=== PATIENT | male | born 1995 | race Caucasian/White ===

== ENCOUNTER 2022-10-23 20:40 | Inpatient (IN) | payer OTHER ==
[2022-10-23] MEDS ORDERED: ONDANSETRON 4 MG/2 ML VIAL IVPB ONE (21:29)
[2022-10-23] MEDS ORDERED: SODIUM CHLORIDE 1,000 ML IV ONE (21:29)
[2022-10-23] MEDS ORDERED: morphine CARPU-JECT 2 MG/1 ML DISP.SYRIN IVPUSH ONE ×2 (21:29→23:06)
[2022-10-23] MEDS ORDERED: morphine SULFATE 4 MG/ML VIAL ONE (21:32)
[2022-10-23] MEDS ORDERED: ONDANSETRON 4 MG/2 ML VIAL ONE (21:33)
[2022-10-23 21:50] LABS: HEMATOCRIT 34.8 % (35.4-49); HEMOGLOBIN 11.9 G/dL (11.7-16.9); MCH 29.2 pg (25.7-33.7); MCHC 34.2 g/dl (32.0-35.9); MEAN CELL VOLUME 85.5 fl (80-96); MEAN PLT VOLUME 9.9 fl (7.5-11.1); RBC 4.07 10^6/uL (4.00-5.60); RDW 15.2 % (11.9-15.9)
[2022-10-23 21:50] LABS: ALBUMIN 4.5 g/dl (3.4-5.0); ALK PHOS 86 U/L (45-117); ANION GAP 12 MMOL/L (8-16); CHLORIDE 90 mmol/L (98-107); CO2 17 mmol/L (21-32); TOT PROT 3.4 g/dl (6.4-8.2)
[2022-10-23 21:51] LABS: WHITE BLOOD COUNT 9.1 10^3/uL (4.0-10.8)
[2022-10-23 21:52] LABS: PLATELET COUNT 172.5 10^3/uL (134-434)
[2022-10-23 21:55] LABS: GLUCOSE,RANDOM 312 mg/dl (74-106)
[2022-10-23 22:24] LABS: SODIUM 119 mmol/L (136-145)
[2022-10-23] MEDS ORDERED: INSULIN REGULAR HUMAN 100 UNITS/ML *VIAL IVPUSH ONE (23:12)
[2022-10-23] MEDS ORDERED: INSULIN REGULAR HUMAN 100 UNITS/ML *VIAL ONE (23:17)
[2022-10-24 00:39] LABS: LIPASE 3287 U/L (73-393)
[2022-10-24] MEDS ORDERED: HYDROmorphone HCL CARPU-JECT 1 MG/1 ML DISP.SYRIN IVPUSH ONE ×2 (00:42→03:10)
[2022-10-24] MEDS ORDERED: HYDROmorphone HCL/PF 1 MG/ML VIAL ONE ×2 (00:43→02:48)
[2022-10-24] MEDS: SODIUM CHLORIDE 1,000 ML IV SCH ×2 (01:19→11:32)
[2022-10-24] MEDS ORDERED: HYDROmorphone HCl 2 MG/ML VIAL IVPUSH STA (05:44)
[2022-10-24] MEDS ORDERED: SENNOSIDES 8.6MG TABLET (FP) PO PRN (05:46)
[2022-10-24] MEDS ORDERED: HYDROmorphone HCl 2 MG/ML VIAL ONE ×2 (05:53→12:59)
[2022-10-24] MEDS ORDERED: SODIUM CHLORIDE 0.9%/KCL 20 MEQ/1,000 ML INFUS.BAG IV SCH (06:00)
[2022-10-24] MEDS: ACETAMINOPHEN 1000 MG/100 ML BAG IVPB SCH ×4 (06:03→22:54)
[2022-10-24] MEDS: DOCUSATE SODIUM 100 MG CAPSULE (FP) PO SCH ×3 (06:04→21:58)
[2022-10-24 08:20] LABS: CHLORIDE 92 mmol/L (98-107); SODIUM 129 mmol/L (136-145)
[2022-10-24 08:22] LABS: ANION GAP 19 MMOL/L (8-16); CO2 18 mmol/L (21-32); MAGNESIUM 1.8 mg/dL (1.8-2.4)
[2022-10-24 08:26] LABS: CREATININE 1.8 mg/dL (0.55-1.3)
[2022-10-24 08:27] LABS: PHOSPHOROUS 5.2 mg/dL (2.5-4.9)
[2022-10-24 09:10] LABS: ALBUMIN 2.9 g/dl (3.4-5.0); ALK PHOS 125 U/L (45-117); BILIRUBIN,DIRECT 1.7 mg/dL (0.0-0.2); BILIRUBIN,TOTAL 3.8 mg/dL (0.2-1); GLUCOSE,RANDOM 474 mg/dL (74-106); LDH 279 U/L (87-246); LIPASE 6159 U/L (73-393); TOT PROT 9.8 g/dl (6.4-8.2); TRIGLYCERIDES > 4000 mg/dL (0-150)
[2022-10-24] MEDS ORDERED: DEXTROSE 5%-LACTATED RINGERS 1,000 ML IV SCH ×4 (09:30→16:02)
[2022-10-24] MEDS ORDERED: INSULIN REGULAR HUMAN 100 UNITS/ML *VIAL* (FOR IVP) IVPUSH ONE (09:31)
[2022-10-24] MEDS: HYDROmorphone HCl 2 MG/ML VIAL IVPUSH PRN ×4 (09:36→21:56)
[2022-10-24] MEDS ORDERED: INSULIN REGULAR 100 UNITS in SODIUM CHLORIDE 99 ML IVPB SCH ×6 (09:45→16:37)
[2022-10-24] MEDS: PANTOPRAZOLE SODIUM 40 MG VIAL IVPUSH SCH (09:56)
[2022-10-24 10:01] LABS: HEMATOCRIT 44.8 % (35.4-49); HEMOGLOBIN 14.7 GM/dL (11.7-16.9); MCH 28.9 pg (25.7-33.7); MCHC 32.6 g/dl (32.0-35.9); PLATELET COUNT 220 10^3/uL (134-434); RDW 15.3 % (11.9-15.9); WHITE BLOOD COUNT 12.5 K/mm3 (4.0-10.0)
[2022-10-24 10:25] LABS: ANISOCYTOSIS 1+; MACROCYTOSIS 0
[2022-10-24] MEDS ORDERED: INSULIN REGULAR HUMAN 100 UNITS/ML *VIAL IVPUSH ONE ×2 (12:45→15:19)
[2022-10-24] MEDS ORDERED: HYDROmorphone HCl 2 MG/ML VIAL IVPUSH ONE (12:58)
[2022-10-24] MEDS: ONDANSETRON 4 MG/2 ML VIAL IVPUSH PRN ×2 (13:01→22:05)
[2022-10-24] MEDS: HEPARIN NA (PORCINE) 5,000 UNITS/ML 1ML VIAL SQ SCH ×2 (13:05→21:57)
[2022-10-24 15:47] LABS: CHLORIDE 101 mmol/L (98-107); SODIUM 133 mmol/L (136-145)
[2022-10-24 15:48] LABS: ANION GAP 20 MMOL/L (8-16); CO2 12 mmol/L (21-32)
[2022-10-24 15:51] LABS: CREATININE 2.1 mg/dL (0.55-1.3)
[2022-10-24 15:59] LABS: TRIGLYCERIDES > 4000 mg/dL (0-150)
[2022-10-24 16:01] LABS: GLUCOSE,RANDOM 467 mg/dL (74-106)
[2022-10-24] MEDS ORDERED: POTASSIUM CHLORIDE 40 MEQ in DEXTROSE 5%-LACTATED RINGERS 1,000 ML IV SCH (16:38)
[2022-10-24] MEDS: INSULIN REGULAR 100 UNITS in SODIUM CHLORIDE 99 ML IVPB SCH (19:00)
[2022-10-24 20:11] LABS: CHLORIDE 113 mmol/L (98-107); SODIUM 139 mmol/L (136-145)
[2022-10-24 20:12] LABS: ANION GAP 9 MMOL/L (8-16); CO2 17 mmol/L (21-32); GLUCOSE,RANDOM 271 mg/dL (74-106)
[2022-10-24 20:16] LABS: CREATININE 2.1 mg/dL (0.55-1.3)
[2022-10-24 20:28] LABS: BLOOD UREA NITROGEN 8.9 mg/dL (7-18); TRIGLYCERIDES > 4000 mg/dL (0-150)
[2022-10-24] MEDS ORDERED: LACTATED RINGERS SOLUTION 1,000 ML/1,000 ML INFUS.BAG IV SCH (22:15)
[2022-10-25 01:16] LABS: CHLORIDE 114 mmol/L (98-107); SODIUM 140 mmol/L (136-145)
[2022-10-25 01:19] LABS: ANION GAP 9 MMOL/L (8-16); CO2 17 mmol/L (21-32); GLUCOSE,RANDOM 243 mg/dL (74-106)
[2022-10-25 01:22] LABS: CREATININE 2.5 mg/dL (0.55-1.3)
[2022-10-25 02:15] LABS: BLOOD UREA NITROGEN 10.7 mg/dL (7-18); CALCIUM 6.1 mg/dL (8.5-10.1); TRIGLYCERIDES 2800 mg/dL (0-150)
[2022-10-25] MEDS: ACETAMINOPHEN 1000 MG/100 ML BAG IVPB SCH (04:53)
[2022-10-25] MEDS: HYDROmorphone HCl 2 MG/ML VIAL IVPUSH PRN ×5 (04:54→21:49)
[2022-10-25] MEDS: HEPARIN NA (PORCINE) 5,000 UNITS/ML 1ML VIAL SQ SCH ×3 (05:01→21:48)
[2022-10-25] MEDS: DOCUSATE SODIUM 100 MG CAPSULE (FP) PO SCH ×4 (05:01→22:01)
[2022-10-25] MEDS ORDERED: INSULIN REGULAR HUMAN 100 UNITS/ML *VIAL IVPUSH ONE (06:59)
[2022-10-25 07:26] LABS: HEMATOCRIT 44.7 % (35.4-49); HEMOGLOBIN 15.7 GM/dL (11.7-16.9); MCH 30.1 pg (25.7-33.7); MCHC 35.2 g/dl (32.0-35.9); MEAN CELL VOLUME 85.4 fl (80-96); MEAN PLT VOLUME 10.1 fl (7.5-11.1); PLATELET COUNT 197 10^3/uL (134-434); RBC 5.23 M/mm3 (4.00-5.60); RDW 16.2 % (11.9-15.9); WHITE BLOOD COUNT 11.5 K/mm3 (4.0-10.0)
[2022-10-25 07:50] LABS: MAGNESIUM 1.6 mg/dL (1.8-2.4)
[2022-10-25 07:53] LABS: PHOSPHOROUS 1.2 mg/dL (2.5-4.9)
[2022-10-25 07:55] LABS: BILIRUBIN,DIRECT 0.4 mg/dL (0.0-0.2)
[2022-10-25 07:56] LABS: CHOLESTEROL 382 mg/dL (50-200); TRIGLYCERIDES > 1000 mg/dL (0-150)
[2022-10-25 07:57] LABS: LDL CHOLESTEROL (ONLY SJRH) 60 mg/dL (5-100)
[2022-10-25 07:59] LABS: HDL CHOLESTEROL 48 mg/dL (40-60)
[2022-10-25] MEDS ORDERED: MAGNESIUM SULF 50% (8.12 MEQ/2 ML-1 GM VIAL) IVPB ONE (08:15)
[2022-10-25] MEDS ORDERED: POTASSIUM PHOSPHATE 30 MM in SODIUM CHLORIDE 250 ML IVPB ONE (09:00)
[2022-10-25] MEDS: PANTOPRAZOLE SODIUM 40 MG VIAL IVPUSH SCH (09:02)
[2022-10-25 09:22] LABS: ANISOCYTOSIS 0; HELMET CELLS 0; HOWELL-JOLLY BODIES 0; MACROCYTOSIS 0; OVALOCYTE 0; ROULEAU 0; SICKELED CELLS 0; TARGET CELLS 0; TEAR DROP CELLS 0; TOXIC GRANULATION 0
[2022-10-25] MEDS ORDERED: POTASSIUM CHLORIDE 20 MEQ in DEXTROSE 5%-LACTATED RINGERS 1,000 ML IV SCH ×2 (11:04→12:06)
[2022-10-25] MEDS: OMEGA-3 ACID ETHYL ESTERS (FATTY-ACIDS) 1 GM CAPSULE (FP) PO SCH ×2 (12:24→21:48)
[2022-10-25] MEDS: INSULIN REGULAR 100 UNITS in SODIUM CHLORIDE 99 ML IVPB SCH ×2 (12:25→23:16)
[2022-10-25] MEDS: D5-LR+20 MEQ KCL - 20 MEQ/1,000 ML INFUS.BAG IV SCH ×3 (12:53→23:46)
[2022-10-25 14:41] LABS: LIPASE 4104 U/L (73-393); TRIGLYCERIDES 1696 mg/dL (0-150)
[2022-10-25] MEDS: GEMFIBROZIL 600 MG TABLET (FP) PO SCH (16:19)
[2022-10-25] MEDS ORDERED: DEXTROSE 50%-WATER 25 GM/50 ML DISP.SYRIN IVPUSH PRN (18:20)
[2022-10-25 18:56] LABS: CHLORIDE 114 mmol/L (98-107); SODIUM 138 mmol/L (136-145)
[2022-10-25 19:02] LABS: CO2 16 mmol/L (21-32)
[2022-10-25 19:05] LABS: CREATININE 1.4 mg/dL (0.55-1.3)
[2022-10-25 19:06] LABS: TRIGLYCERIDES 935 mg/dL (0-150)
[2022-10-25 19:07] LABS: BILIRUBIN,TOTAL 0.6 mg/dL (0.2-1)
[2022-10-25 19:17] LABS: ALBUMIN 1.4 g/dl (3.4-5.0); ALK PHOS 45 U/L (45-117); ANION GAP 8 MMOL/L (8-16); BLOOD UREA NITROGEN 10.9 mg/dL (7-18); CALCIUM 6.2 mg/dL (8.5-10.1); GLUCOSE,RANDOM 1277 mg/dL (74-106); SGOT/AST 34 U/L (15-37); SGPT/ALT 34 U/L (13-61); TOT PROT 3.4 g/dl (6.4-8.2)
[2022-10-25 20:16] LABS: CHLORIDE 112 mmol/L (98-107); SODIUM 138 mmol/L (136-145)
[2022-10-25 20:18] LABS: ANION GAP 8 MMOL/L (8-16); CO2 18 mmol/L (21-32); GLUCOSE,RANDOM 382 mg/dL (74-106)
[2022-10-25 20:21] LABS: CREATININE 1.2 mg/dL (0.55-1.3)
[2022-10-25 20:32] LABS: BLOOD UREA NITROGEN 14.4 mg/dL (7-18); CALCIUM 6.6 mg/dL (8.5-10.1); TRIGLYCERIDES 1112 mg/dL (0-150)
[2022-10-26] MEDS: D5-LR+20 MEQ KCL - 20 MEQ/1,000 ML INFUS.BAG IV SCH ×5 (04:43→21:00)
[2022-10-26] MEDS: HYDROmorphone HCl 2 MG/ML VIAL IVPUSH PRN ×4 (06:13→20:55)
[2022-10-26] MEDS: DOCUSATE SODIUM 100 MG CAPSULE (FP) PO SCH (06:14)
[2022-10-26] MEDS: GEMFIBROZIL 600 MG TABLET (FP) PO SCH ×2 (06:14→17:43)
[2022-10-26] MEDS: HEPARIN NA (PORCINE) 5,000 UNITS/ML 1ML VIAL SQ SCH ×3 (06:14→21:00)
[2022-10-26 08:01] LABS: HEMATOCRIT 38.6 % (35.4-49); HEMOGLOBIN 13.4 GM/dL (11.7-16.9); MCH 29.5 pg (25.7-33.7); MCHC 34.8 g/dl (32.0-35.9); MEAN CELL VOLUME 84.9 fl (80-96); MEAN PLT VOLUME 10.4 fl (7.5-11.1); PLATELET COUNT 132 10^3/uL (134-434); RBC 4.54 M/mm3 (4.00-5.60); RDW 16.5 % (11.9-15.9); WHITE BLOOD COUNT 5.5 K/mm3 (4.0-10.0)
[2022-10-26 08:13] LABS: CHLORIDE 111 mmol/L (98-107); SODIUM 138 mmol/L (136-145)
[2022-10-26 08:18] LABS: BLOOD UREA NITROGEN 10.7 mg/dL (7-18)
[2022-10-26 08:19] LABS: CALCIUM 7.1 mg/dL (8.5-10.1)
[2022-10-26 08:21] LABS: CREATININE 0.8 mg/dL (0.55-1.3)
[2022-10-26 08:22] LABS: CALCIUM 7.1 mg/dL (8.5-10.1)
[2022-10-26 08:23] LABS: ANION GAP 8 MMOL/L (8-16); BLOOD UREA NITROGEN 10.8 mg/dL (7-18); CO2 19 mmol/L (21-32); GLUCOSE,RANDOM 327 mg/dL (74-106); LIPASE 1263 U/L (73-393)
[2022-10-26 08:24] LABS: BILIRUBIN,DIRECT 0.1 mg/dL (0.0-0.2)
[2022-10-26 08:26] LABS: ALK PHOS 66 U/L (45-117); BILIRUBIN,TOTAL 0.9 mg/dL (0.2-1)
[2022-10-26 08:28] LABS: PHOSPHOROUS 0.8 mg/dL (2.5-4.9); SGOT/AST 46 U/L (15-37); SGPT/ALT 36 U/L (13-61); TOT PROT 4.9 g/dl (6.4-8.2)
[2022-10-26] MEDS: OMEGA-3 ACID ETHYL ESTERS (FATTY-ACIDS) 1 GM CAPSULE (FP) PO SCH ×2 (08:59→21:00)
[2022-10-26] MEDS: PANTOPRAZOLE SODIUM 40 MG VIAL IVPUSH SCH (08:59)
[2022-10-26] MEDS ORDERED: SODIUM PHOSPHATE - 30 MM in SODIUM CHLORIDE 250 ML IVPB ONE (09:43)
[2022-10-26 10:05] LABS: ANISOCYTOSIS 0; MACROCYTOSIS 0
[2022-10-26] MEDS: INSULIN REGULAR 100 UNITS in SODIUM CHLORIDE 99 ML IVPB SCH ×2 (11:19→21:01)
[2022-10-26] MEDS: POLYETHYLENE GLYCOL (HEALTHYLAX) 3350 17 GM PACKET PO SCH (14:36)
[2022-10-26] MEDS ORDERED: ROSUVASTATIN CA 20 MG TABLET PO SCH (22:00)
[2022-10-26 22:34] LABS: BLOOD UREA NITROGEN 7.2 mg/dL (7-18)
[2022-10-26 22:37] LABS: CREATININE 0.7 mg/dL (0.55-1.3)
[2022-10-27] MEDS: D5-LR+20 MEQ KCL - 20 MEQ/1,000 ML INFUS.BAG IV SCH ×2 (01:25→06:26)
[2022-10-27] MEDS: HYDROmorphone HCl 2 MG/ML VIAL IVPUSH PRN (04:44)
[2022-10-27] MEDS: GEMFIBROZIL 600 MG TABLET (FP) PO SCH ×2 (06:25→16:48)
[2022-10-27 06:56] LABS: HEMATOCRIT 31.5 % (35.4-49); HEMOGLOBIN 10.3 GM/dL (11.7-16.9); MCH 27.9 pg (25.7-33.7); MCHC 32.6 g/dl (32.0-35.9); MEAN CELL VOLUME 85.7 fl (80-96); MEAN PLT VOLUME 9.9 fl (7.5-11.1); PLATELET COUNT 124 10^3/uL (134-434); RBC 3.68 M/mm3 (4.00-5.60); RDW 17.1 % (11.9-15.9); WHITE BLOOD COUNT 4.7 K/mm3 (4.0-10.0)
[2022-10-27 07:14] LABS: CALCIUM 7.2 mg/dL (8.5-10.1)
[2022-10-27 07:15] LABS: BLOOD UREA NITROGEN 7.1 mg/dL (7-18)
[2022-10-27 07:18] LABS: CREATININE 0.7 mg/dL (0.55-1.3)
[2022-10-27 08:08] LABS: MAGNESIUM 1.7 mg/dL (1.8-2.4)
[2022-10-27 08:09] LABS: BLOOD UREA NITROGEN 6.9 mg/dL (7-18); CALCIUM 7.3 mg/dL (8.5-10.1)
[2022-10-27 08:10] LABS: ALBUMIN 1.8 g/dl (3.4-5.0)
[2022-10-27 08:12] LABS: BILIRUBIN,DIRECT 0.2 mg/dL (0.0-0.2); CREATININE 0.7 mg/dL (0.55-1.3)
[2022-10-27 08:13] LABS: TOT PROT 4.2 g/dl (6.4-8.2)
[2022-10-27 08:14] LABS: BILIRUBIN,TOTAL 0.6 mg/dL (0.2-1)
[2022-10-27 08:29] LABS: PHOSPHOROUS 1.2 mg/dL (2.5-4.9)
[2022-10-27] MEDS ORDERED: INSULIN (LEVEMIR) 100 UNITS/ML UNITS SQ ONE (09:30)
[2022-10-27] MEDS: HEPARIN NA (PORCINE) 5,000 UNITS/ML 1ML VIAL SQ SCH ×2 (09:50→21:44)
[2022-10-27] MEDS: PANTOPRAZOLE SODIUM 40 MG VIAL IVPUSH SCH (09:50)
[2022-10-27] MEDS: POLYETHYLENE GLYCOL (HEALTHYLAX) 3350 17 GM PACKET PO SCH ×2 (09:50→21:40)
[2022-10-27] MEDS: OMEGA-3 ACID ETHYL ESTERS (FATTY-ACIDS) 1 GM CAPSULE (FP) PO SCH ×2 (09:51→21:40)
[2022-10-27] MEDS ORDERED: SIMETHICONE 80 MG TAB.CHEW (FP) PO PRN (10:01)
[2022-10-27 10:04] LABS: ANISOCYTOSIS 0; HELMET CELLS 0; HOWELL-JOLLY BODIES 0; MACROCYTOSIS 0; OVALOCYTE 0; ROULEAU 0; SICKELED CELLS 0; TARGET CELLS 0; TEAR DROP CELLS 0; TOXIC GRANULATION 0
[2022-10-27] MEDS ORDERED: POTASSIUM CHLORIDE TABS 20 MEQ TABLET.ER (FP) PO ONE (10:15)
[2022-10-27] MEDS: LACTATED RINGERS SOLUTION 1,000 ML/1,000 ML INFUS.BAG IV SCH ×2 (10:23→18:16)
[2022-10-27] MEDS ORDERED: HYDROmorphone HCl 2 MG/ML VIAL ONE ×2 (12:59→18:15)
[2022-10-27] MEDS ORDERED: HYDROmorphone HCL CARPU-JECT 2 MG/1 ML DISP.SYRIN IVPUSH ONE (13:02)
[2022-10-27] MEDS ORDERED: HYDROmorphone HCl 2 MG/ML VIAL IVPUSH ONE (13:02)
[2022-10-27] MEDS ORDERED: HYDROmorphone HCL 2 MG TABLET PO ONE (13:15)
[2022-10-27] MEDS ORDERED: INSULIN SLIDING SCALE (NOVOLOG) 1 VIAL SQ SCH (16:30)
[2022-10-27] MEDS: INSULIN SLIDING SCALE (NOVOLOG) 1 VIAL SQ SCH ×2 (16:48→21:41)
[2022-10-27] MEDS: HYDROmorphone HCl 2 MG/ML VIAL IVPB PRN (18:15)
[2022-10-27] MEDS ORDERED: LACTATED RINGERS SOLUTION 1,000 ML/1,000 ML INFUS.BAG IV SCH (18:49)
[2022-10-27] MEDS ORDERED: ONDANSETRON 4 MG/2 ML VIAL IVPUSH PRN (18:49)
[2022-10-27] MEDS ORDERED: DEXTROSE 50%-WATER 25 GM/50 ML DISP.SYRIN IVPUSH PRN (18:49)
[2022-10-27] MEDS ORDERED: INSULIN (NOVOLOG) ASPART 100 UNITS/ML 10ML VIAL ONE (21:20)
[2022-10-27] MEDS: ROSUVASTATIN CA 20 MG TABLET PO SCH (21:39)
[2022-10-27] MEDS ORDERED: POLYETHYLENE GLYCOL (HEALTHYLAX) 3350 17 GM PACKET PO SCH (22:00)
[2022-10-28] MEDS: HYDROmorphone HCl 2 MG/ML VIAL IVPB PRN ×3 (00:09→15:34)
[2022-10-28] MEDS: GEMFIBROZIL 600 MG TABLET (FP) PO SCH ×2 (06:13→17:32)
[2022-10-28] MEDS: INSULIN SLIDING SCALE (NOVOLOG) 1 VIAL SQ SCH ×4 (06:31→21:13)
[2022-10-28] MEDS ORDERED: PANTOPRAZOLE SODIUM 40 MG VIAL IVPUSH SCH (10:00)
[2022-10-28] MEDS: POLYETHYLENE GLYCOL (HEALTHYLAX) 3350 17 GM PACKET PO SCH ×2 (10:06→21:12)
[2022-10-28] MEDS: HEPARIN NA (PORCINE) 5,000 UNITS/ML 1ML VIAL SQ SCH ×2 (10:06→21:12)
[2022-10-28] MEDS: OMEGA-3 ACID ETHYL ESTERS (FATTY-ACIDS) 1 GM CAPSULE (FP) PO SCH ×2 (10:11→21:12)
[2022-10-28] MEDS ORDERED: morphine SULFATE 4 MG/ML VIAL IVPUSH ONE (10:12)
[2022-10-28 11:25] LABS: HEMATOCRIT 33.1 % (35.4-49); MCH 28.3 pg (25.7-33.7); MCHC 33.1 g/dl (32.0-35.9); MEAN CELL VOLUME 85.5 fl (80-96); MEAN PLT VOLUME 8.9 fl (7.5-11.1); PLATELET COUNT 165 10^3/uL (134-434); RBC 3.87 M/mm3 (4.00-5.60); RDW 16.6 % (11.9-15.9); WHITE BLOOD COUNT 6.3 K/mm3 (4.0-10.0)
[2022-10-28] MEDS ORDERED: INSULIN (NOVOLOG) ASPART 100 UNITS/ML 10ML VIAL ONE ×2 (11:56→21:09)
[2022-10-28 12:01] LABS: CALCIUM 7.8 mg/dL (8.5-10.1)
[2022-10-28 12:02] LABS: ALBUMIN 2.1 g/dl (3.4-5.0); BILIRUBIN,TOTAL 0.6 mg/dL (0.2-1); BLOOD UREA NITROGEN 5.8 mg/dL (7-18); TOT PROT 5.4 g/dl (6.4-8.2)
[2022-10-28 12:03] LABS: BILIRUBIN,DIRECT 0.3 mg/dL (0.0-0.2)
[2022-10-28 12:04] LABS: CREATININE 0.7 mg/dL (0.55-1.3)
[2022-10-28 12:48] LABS: ANISOCYTOSIS 0; HELMET CELLS 0; HOWELL-JOLLY BODIES 0; MACROCYTOSIS 0; OVALOCYTE 0; ROULEAU 0; SICKELED CELLS 0; TARGET CELLS 0; TEAR DROP CELLS 0; TOXIC GRANULATION 0
[2022-10-28 14:25] VITALS: RESP 18
[2022-10-28] MEDS: LACTATED RINGERS SOLUTION 1,000 ML/1,000 ML INFUS.BAG IV SCH ×2 (17:09→21:13)
[2022-10-28] MEDS: ROSUVASTATIN CA 20 MG TABLET PO SCH (21:12)
[2022-10-29] MEDS ORDERED: ACETAMINOPHEN 1000 MG/100 ML BAG IVPB ONE (02:11)
[2022-10-29] MEDS: INSULIN SLIDING SCALE (NOVOLOG) 1 VIAL SQ SCH ×4 (06:33→22:11)
[2022-10-29] MEDS: GEMFIBROZIL 600 MG TABLET (FP) PO SCH ×2 (06:33→16:38)
[2022-10-29] MEDS ORDERED: INSULIN (NOVOLOG) ASPART 100 UNITS/ML 10ML VIAL ONE ×2 (06:57→11:11)
[2022-10-29] MEDS: SIMETHICONE 80 MG TAB.CHEW (FP) PO PRN ×2 (07:00→10:47)
[2022-10-29] MEDS: HYDROmorphone HCl 2 MG/ML VIAL IVPB PRN ×3 (10:44→23:47)
[2022-10-29] MEDS: OMEGA-3 ACID ETHYL ESTERS (FATTY-ACIDS) 1 GM CAPSULE (FP) PO SCH ×2 (10:45→22:10)
[2022-10-29] MEDS: HEPARIN NA (PORCINE) 5,000 UNITS/ML 1ML VIAL SQ SCH ×2 (10:46→22:10)
[2022-10-29] MEDS: POLYETHYLENE GLYCOL (HEALTHYLAX) 3350 17 GM PACKET PO SCH ×2 (10:46→22:10)
[2022-10-29 11:41] LABS: CALCIUM 8.1 mg/dL (8.5-10.1)
[2022-10-29 11:42] LABS: BLOOD UREA NITROGEN 5.1 mg/dL (7-18)
[2022-10-29 11:44] LABS: CREATININE 0.7 mg/dL (0.55-1.3)
[2022-10-29] MEDS: LACTATED RINGERS SOLUTION 1,000 ML/1,000 ML INFUS.BAG IV SCH (12:23)
[2022-10-29] MEDS: ROSUVASTATIN CA 20 MG TABLET PO SCH (22:10)
[2022-10-30] MEDS: LACTATED RINGERS SOLUTION 1,000 ML/1,000 ML INFUS.BAG IV SCH (01:00)
[2022-10-30] MEDS: INSULIN SLIDING SCALE (NOVOLOG) 1 VIAL SQ SCH ×4 (06:34→21:42)
[2022-10-30] MEDS: GEMFIBROZIL 600 MG TABLET (FP) PO SCH ×2 (06:34→16:58)
[2022-10-30] MEDS ORDERED: INSULIN (NOVOLOG) ASPART 100 UNITS/ML 10ML VIAL ONE ×2 (06:53→21:12)
[2022-10-30] MEDS: HYDROmorphone HCl 2 MG/ML VIAL IVPB PRN ×3 (07:34→21:15)
[2022-10-30] MEDS: HEPARIN NA (PORCINE) 5,000 UNITS/ML 1ML VIAL SQ SCH ×2 (10:07→21:15)
[2022-10-30] MEDS: POLYETHYLENE GLYCOL (HEALTHYLAX) 3350 17 GM PACKET PO SCH ×2 (10:07→21:16)
[2022-10-30] MEDS: OMEGA-3 ACID ETHYL ESTERS (FATTY-ACIDS) 1 GM CAPSULE (FP) PO SCH ×2 (10:07→21:15)
[2022-10-30] MEDS: ROSUVASTATIN CA 20 MG TABLET PO SCH (21:15)
[2022-10-30] MEDS: INSULIN (LEVEMIR) 100 UNITS/ML UNITS SQ SCH (21:41)
[2022-10-31] MEDS: LACTATED RINGERS SOLUTION 1,000 ML/1,000 ML INFUS.BAG IV SCH ×2 (02:56→22:22)
[2022-10-31] MEDS: HYDROmorphone HCl 2 MG/ML VIAL IVPB PRN ×3 (04:02→16:49)
[2022-10-31] MEDS: INSULIN SLIDING SCALE (NOVOLOG) 1 VIAL SQ SCH ×4 (06:31→22:31)
[2022-10-31] MEDS: GEMFIBROZIL 600 MG TABLET (FP) PO SCH ×2 (06:31→16:49)
[2022-10-31 09:08] LABS: BASO % 0.3 % (0-2.0); EOS % 1.3 % (0-4.5); HEMATOCRIT 27.5 % (35.4-49); HEMOGLOBIN 9.1 GM/dL (11.7-16.9); MCH 27.8 pg (25.7-33.7); MEAN CELL VOLUME 84.3 fl (80-96); MEAN PLT VOLUME 8.1 fl (7.5-11.1); MONO % 8.9 % (3.8-10.2); NEUT % 79.5 % (42.8-82.8); PLATELET COUNT 299 10^3/uL (134-434); RBC 3.26 M/mm3 (4.00-5.60); RDW 15.5 % (11.9-15.9); WHITE BLOOD COUNT 7.9 K/mm3 (4.0-10.0)
[2022-10-31] MEDS: INSULIN (LEVEMIR) 100 UNITS/ML UNITS SQ SCH ×2 (09:35→22:30)
[2022-10-31] MEDS: POLYETHYLENE GLYCOL (HEALTHYLAX) 3350 17 GM PACKET PO SCH ×2 (09:36→22:23)
[2022-10-31] MEDS: OMEGA-3 ACID ETHYL ESTERS (FATTY-ACIDS) 1 GM CAPSULE (FP) PO SCH ×2 (09:36→22:29)
[2022-10-31] MEDS: HEPARIN NA (PORCINE) 5,000 UNITS/ML 1ML VIAL SQ SCH ×2 (09:36→22:23)
[2022-10-31 10:17] LABS: AMYLASE 21 U/L (25-115); LIPASE 160 U/L (73-393)
[2022-10-31 10:20] LABS: ALBUMIN 1.8 g/dl (3.4-5.0); BLOOD UREA NITROGEN 5.8 mg/dL (7-18); CALCIUM 8.1 mg/dL (8.5-10.1)
[2022-10-31 10:23] LABS: CREATININE 0.8 mg/dL (0.55-1.3)
[2022-10-31 10:25] LABS: BILIRUBIN,TOTAL 0.5 mg/dL (0.2-1); TOT PROT 5.4 g/dl (6.4-8.2)
[2022-10-31] MEDS ORDERED: KCL 10 MEQ IVPB 10 MEQ/100 ML INFUS.BAG IVPB SCH (21:00)
[2022-10-31] MEDS: ROSUVASTATIN CA 20 MG TABLET PO SCH (22:23)
[2022-11-01] MEDS: LACTATED RINGERS SOLUTION 1,000 ML/1,000 ML INFUS.BAG IV SCH ×2 (01:00→18:51)
[2022-11-01] MEDS: INSULIN SLIDING SCALE (NOVOLOG) 1 VIAL SQ SCH ×4 (06:17→22:46)
[2022-11-01] MEDS: GEMFIBROZIL 600 MG TABLET (FP) PO SCH ×2 (08:35→16:51)
[2022-11-01] MEDS: HEPARIN NA (PORCINE) 5,000 UNITS/ML 1ML VIAL SQ SCH ×2 (09:21→22:37)
[2022-11-01] MEDS: INSULIN (LEVEMIR) 100 UNITS/ML UNITS SQ SCH (09:21)
[2022-11-01] MEDS: POLYETHYLENE GLYCOL (HEALTHYLAX) 3350 17 GM PACKET PO SCH ×2 (09:21→22:39)
[2022-11-01] MEDS: POTASSIUM CHLORIDE TABS 20 MEQ TABLET.ER (FP) PO SCH ×2 (09:21→22:36)
[2022-11-01] MEDS: OMEGA-3 ACID ETHYL ESTERS (FATTY-ACIDS) 1 GM CAPSULE (FP) PO SCH ×2 (09:27→22:36)
[2022-11-01 10:02] LABS: HEMATOCRIT 50.3 % (35.4-49); HEMOGLOBIN 15.9 GM/dL (11.7-16.9); MCH 26.5 pg (25.7-33.7); MCHC 31.5 g/dl (32.0-35.9); MEAN CELL VOLUME 84.2 fl (80-96); MEAN PLT VOLUME 8.1 fl (7.5-11.1); PLATELET COUNT 188 10^3/uL (134-434); RBC 5.98 M/mm3 (4.00-5.60); RDW 20.3 % (11.9-15.9); WHITE BLOOD COUNT 12.5 K/mm3 (4.0-10.0)
[2022-11-01 10:35] LABS: CHLORIDE 101 mmol/L (98-107); SODIUM 138 mmol/L (136-145)
[2022-11-01 10:40] LABS: BLOOD UREA NITROGEN 3.8 mg/dL (7-18); CALCIUM 7.9 mg/dL (8.5-10.1); CO2 25 mmol/L (21-32); GLUCOSE,RANDOM 274 mg/dL (74-106)
[2022-11-01 10:43] LABS: CREATININE 0.9 mg/dL (0.55-1.3)
[2022-11-01 10:46] LABS: ANION GAP 12 MMOL/L (8-16)
[2022-11-01] MEDS: HYDROmorphone HCl 2 MG/ML VIAL IVPB PRN (12:33)
[2022-11-01] MEDS: KCL 10 MEQ IVPB 10 MEQ/100 ML INFUS.BAG IVPB SCH ×3 (12:35→14:48)
[2022-11-01 17:06] VITALS: BMI 34.5
[2022-11-01] MEDS: ROSUVASTATIN CA 20 MG TABLET PO SCH (22:36)
[2022-11-02] MEDS: GEMFIBROZIL 600 MG TABLET (FP) PO SCH ×2 (06:23→16:55)
[2022-11-02] MEDS: INSULIN SLIDING SCALE (NOVOLOG) 1 VIAL SQ SCH ×4 (06:23→22:52)
[2022-11-02] MEDS: INSULIN (NOVOLOG MIX 70/30) 100 UNITS/ML MDV SQ SCH ×2 (06:24→16:45)
[2022-11-02 08:48] LABS: BASO % 0.8 % (0-2.0); EOS % 2.9 % (0-4.5); HEMATOCRIT 30.6 % (35.4-49); HEMOGLOBIN 10.2 GM/dL (11.7-16.9); LYMPH % 15.5 % (8-40); MCH 27.9 pg (25.7-33.7); MCHC 33.4 g/dl (32.0-35.9); MEAN CELL VOLUME 83.6 fl (80-96); MONO % 6.8 % (3.8-10.2); PLATELET COUNT 357 10^3/uL (134-434); RBC 3.66 M/mm3 (4.00-5.60); RDW 15.3 % (11.9-15.9); WHITE BLOOD COUNT 6.5 K/mm3 (4.0-10.0)
[2022-11-02 09:08] LABS: ALBUMIN 1.9 g/dl (3.4-5.0); CALCIUM 8.2 mg/dL (8.5-10.1)
[2022-11-02 09:09] LABS: BLOOD UREA NITROGEN 5.3 mg/dL (7-18)
[2022-11-02 09:10] LABS: CREATININE 0.9 mg/dL (0.55-1.3)
[2022-11-02 09:12] LABS: BILIRUBIN,TOTAL 0.5 mg/dL (0.2-1); TOT PROT 5.9 g/dl (6.4-8.2)
[2022-11-02] MEDS: HYDROmorphone HCl 2 MG/ML VIAL IVPB PRN ×3 (10:53→22:50)
[2022-11-02] MEDS: POTASSIUM CHLORIDE TABS 20 MEQ TABLET.ER (FP) PO SCH ×2 (11:00→22:16)
[2022-11-02] MEDS: HEPARIN NA (PORCINE) 5,000 UNITS/ML 1ML VIAL SQ SCH ×2 (11:01→22:16)
[2022-11-02] MEDS: POLYETHYLENE GLYCOL (HEALTHYLAX) 3350 17 GM PACKET PO SCH ×2 (11:01→22:16)
[2022-11-02] MEDS: OMEGA-3 ACID ETHYL ESTERS (FATTY-ACIDS) 1 GM CAPSULE (FP) PO SCH ×2 (11:02→22:31)
[2022-11-02 13:46] LABS: MAGNESIUM 2.2 mg/dL (1.8-2.4)
[2022-11-02 13:50] LABS: PHOSPHOROUS 2.3 mg/dL (2.5-4.9)
[2022-11-02] MEDS: ROSUVASTATIN CA 20 MG TABLET PO SCH (22:16)
[2022-11-02] MEDS: LACTATED RINGERS SOLUTION 1,000 ML/1,000 ML INFUS.BAG IV SCH (22:16)
[2022-11-03] MEDS: GEMFIBROZIL 600 MG TABLET (FP) PO SCH ×2 (06:35→16:48)
[2022-11-03] MEDS: INSULIN SLIDING SCALE (NOVOLOG) 1 VIAL SQ SCH ×4 (06:35→21:31)
[2022-11-03] MEDS: INSULIN (NOVOLOG MIX 70/30) 100 UNITS/ML MDV SQ SCH ×2 (06:36→16:48)
[2022-11-03] MEDS: LACTATED RINGERS SOLUTION 1,000 ML/1,000 ML INFUS.BAG IV SCH ×2 (09:50→21:24)
[2022-11-03] MEDS: OMEGA-3 ACID ETHYL ESTERS (FATTY-ACIDS) 1 GM CAPSULE (FP) PO SCH ×2 (09:50→21:27)
[2022-11-03] MEDS: POLYETHYLENE GLYCOL (HEALTHYLAX) 3350 17 GM PACKET PO SCH ×2 (09:50→21:25)
[2022-11-03] MEDS: POTASSIUM CHLORIDE TABS 20 MEQ TABLET.ER (FP) PO SCH ×2 (09:50→21:26)
[2022-11-03] MEDS: HEPARIN NA (PORCINE) 5,000 UNITS/ML 1ML VIAL SQ SCH (09:51)
[2022-11-03 10:36] LABS: HEMATOCRIT 28.2 % (35.4-49); HEMOGLOBIN 9.4 GM/dL (11.7-16.9); MCH 27.8 pg (25.7-33.7); MCHC 33.1 g/dl (32.0-35.9); PLATELET COUNT 379 10^3/uL (134-434); RBC 3.36 M/mm3 (4.00-5.60); RDW 15.5 % (11.9-15.9); WHITE BLOOD COUNT 6.9 K/mm3 (4.0-10.0)
[2022-11-03 10:57] LABS: BLOOD UREA NITROGEN 4.7 mg/dL (7-18); CALCIUM 8.2 mg/dL (8.5-10.1)
[2022-11-03 10:58] LABS: MAGNESIUM 2.1 mg/dL (1.8-2.4)
[2022-11-03 11:04] LABS: CREATININE 0.9 mg/dL (0.55-1.3)
[2022-11-03] MEDS ORDERED: MELATONIN 5 MG TABLETS PO PRN (11:48)
[2022-11-03] MEDS: SIMETHICONE 80 MG TAB.CHEW (FP) PO PRN (14:12)
[2022-11-03] MEDS ORDERED: INSULIN (NOVOLOG) ASPART 100 UNITS/ML 10ML VIAL ONE ×3 (17:39→21:04)
[2022-11-03] MEDS ORDERED: INSULIN (NOVOLOG MIX 70/30) 100 UNITS/ML MDV SQ ONE (17:54)
[2022-11-03] MEDS ORDERED: HYDROmorphone HCl 2 MG/ML VIAL IVPB PRN (18:56)
[2022-11-03] MEDS ORDERED: KETOROLAC TROMETHAMINE 30 MG/1 ML VIAL IVPUSH PRN (18:56)
[2022-11-03] MEDS: ROSUVASTATIN CA 20 MG TABLET PO SCH (21:26)
[2022-11-04] MEDS: GEMFIBROZIL 600 MG TABLET (FP) PO SCH ×2 (06:45→17:10)
[2022-11-04] MEDS: INSULIN (NOVOLOG MIX 70/30) 100 UNITS/ML MDV SQ SCH ×2 (06:47→17:10)
[2022-11-04] MEDS: INSULIN SLIDING SCALE (NOVOLOG) 1 VIAL SQ SCH ×4 (06:48→21:58)
[2022-11-04] MEDS ORDERED: INSULIN (NOVOLOG) ASPART 100 UNITS/ML 10ML VIAL ONE ×3 (06:53→21:09)
[2022-11-04 09:36] LABS: HEMATOCRIT 28.1 % (35.4-49); HEMOGLOBIN 9.3 GM/dL (11.7-16.9); MCH 27.8 pg (25.7-33.7); MEAN CELL VOLUME 84.2 fl (80-96); MEAN PLT VOLUME 7.8 fl (7.5-11.1); PLATELET COUNT 377 10^3/uL (134-434); RBC 3.34 M/mm3 (4.00-5.60); WHITE BLOOD COUNT 4.6 K/mm3 (4.0-10.0)
[2022-11-04] MEDS: OMEGA-3 ACID ETHYL ESTERS (FATTY-ACIDS) 1 GM CAPSULE (FP) PO SCH ×2 (10:01→23:17)
[2022-11-04] MEDS: LACTATED RINGERS SOLUTION 1,000 ML/1,000 ML INFUS.BAG IV SCH ×3 (10:01→21:51)
[2022-11-04] MEDS: POTASSIUM CHLORIDE TABS 20 MEQ TABLET.ER (FP) PO SCH ×2 (10:01→21:52)
[2022-11-04] MEDS: POLYETHYLENE GLYCOL (HEALTHYLAX) 3350 17 GM PACKET PO SCH ×2 (10:01→21:53)
[2022-11-04 10:21] LABS: CALCIUM 8.7 mg/dL (8.5-10.1)
[2022-11-04 10:22] LABS: BLOOD UREA NITROGEN 4.2 mg/dL (7-18)
[2022-11-04 10:25] LABS: CREATININE 0.9 mg/dL (0.55-1.3)
[2022-11-04 10:26] LABS: BILIRUBIN,TOTAL 0.4 mg/dL (0.2-1); TOT PROT 5.7 g/dl (6.4-8.2)
[2022-11-04] MEDS: ACETAMINOPHEN 1000 MG/100 ML BAG IVPB PRN (18:37)
[2022-11-04] MEDS: ROSUVASTATIN CA 20 MG TABLET PO SCH (21:52)
[2022-11-05] MEDS: LACTATED RINGERS SOLUTION 1,000 ML/1,000 ML INFUS.BAG IV SCH (05:16)
[2022-11-05] MEDS: GEMFIBROZIL 600 MG TABLET (FP) PO SCH (06:06)
[2022-11-05] MEDS: INSULIN SLIDING SCALE (NOVOLOG) 1 VIAL SQ SCH ×2 (06:08→11:38)
[2022-11-05] MEDS: INSULIN (NOVOLOG MIX 70/30) 100 UNITS/ML MDV SQ SCH (06:09)
[2022-11-05] MEDS ORDERED: INSULIN (NOVOLOG) ASPART 100 UNITS/ML 10ML VIAL ONE (07:04)
[2022-11-05] MEDS: ACETAMINOPHEN 1000 MG/100 ML BAG IVPB PRN (07:29)
[2022-11-05] MEDS: POTASSIUM CHLORIDE TABS 20 MEQ TABLET.ER (FP) PO SCH (10:57)
[2022-11-05] MEDS: POLYETHYLENE GLYCOL (HEALTHYLAX) 3350 17 GM PACKET PO SCH (10:57)
[2022-11-05] MEDS: SIMETHICONE 80 MG TAB.CHEW (FP) PO PRN (10:58)
[2022-11-05] MEDS: OMEGA-3 ACID ETHYL ESTERS (FATTY-ACIDS) 1 GM CAPSULE (FP) PO SCH (10:58)
[2022-11-05 14:29] VITALS: BP 108/60; PULSE 87; TEMP 98.8
== END 2022-11-05 17:13 | disposition home health service (06) | DRG 282 ==
LOC: FER 20:40 → JICU 10-24 04:30 → J6S 10-27 18:48
PROVIDERS: ADMIT Family Medicine; ATTEND Family Medicine
DX: K85.81 Other acute pancreatitis with uninfected necrosis (principal); N17.9 Acute kidney failure, unspecified; E11.65 Type 2 diabetes mellitus with hyperglycemia; E78.00 Pure hypercholesterolemia, unspecified; E87.1 Hypo-osmolality and hyponatremia; E87.6 Hypokalemia; E66.9 Obesity, unspecified; Z68.34 Body mass index [BMI] 34.0-34.9, adult
CPT/HCPCS: 36415; 71045-TC-FY; 74177-TC; 80048; 80053; 80061; 80076; 81003; 82010; 82150; 82248; 82330; 82962; 83036; 83605; 83615; 83690; 83735; 84100; 84478; 85025; 85027; 86140; 87324; 87449; 93005; 94010; 99285-25; C9803-CS; J1644; Q9967; U0003; U0005